=== PATIENT | male | born 1985 | race Caucasian/White ===

== ENCOUNTER 2022-03-05 21:45 | Emergency (ER) | payer MEDICAID ==
[~2022-03-05] VITALS: Ht 177.8 cm; Wt 70.5 kg
[2022-03-05 22:14] VITALS: BP 90/62
== END 2022-03-06 03:46 | disposition left against medical advice (07) ==
LOC: ER 21:46
DX: F20.9 Schizophrenia, unspecified (principal); Z53.21 Procedure and treatment not carried out due to patient leaving prior to being seen by health care provider